=== PATIENT | female | born 1945 | race Caucasian/White ===

== ENCOUNTER 2017-05-07 09:53 | Day surgery (SDC) | payer BC, OTHER ==
[2017-04-29 08:26] VITALS: BMI 35.0
[~2017-05-07] VITALS: Ht 157.5 cm; Wt 87.7 kg
[~2017-05-07 09:53] MED LIST: ATROPINE SULFATE 0.1 MG/ML 5ML SYR IV PRN; CHOL100010 PO; DILT120C43 PO; EpHEDrine SULFATE INJ 50 MG/ML AMP IV PRN; FENTANYL CITRATE INJ 50 MCG/1 ML 2 ML VIAL IV PRN; FURO-85 PO; IBUP-1459 PO; LACTATED RINGER'S 1000ML 1,000 ML IV SCH; PREG1CAP70 PO
[2017-05-07] MEDS ORDERED: ONDANSETRON INJ 2 MG/ML 2 ML VIAL ONE (10:23)
[2017-05-07] MEDS ORDERED: MIDAZOLAM HCL 1 MG/ML 2ML VIAL ONE (10:23)
[2017-05-07] MEDS ORDERED: DEXAMETHASONE SOD INJ 4 MG/ML VIAL ONE (10:23)
[2017-05-07] MEDS ORDERED: GLYCOPYRROLATE INJ 0.2 MG/ML VIAL ONE (10:23)
[2017-05-07] MEDS ORDERED: NEOSTIGMINE METHYLSULFATE 5 MG/5 ML SYR ONE (10:23)
[2017-05-07] MEDS ORDERED: LIDOCAINE HCL 2% 2 ML VIAL (20MG/ML) ONE (10:23)
[2017-05-07] MEDS ORDERED: FENTANYL CITRATE INJ 50 MCG/1 ML 2 ML VIAL ONE (10:23)
[2017-05-07] MEDS ORDERED: PROPOFOL IV EMULSION 10 MG/ML 20 ML VIAL IV ONE (10:23)
[2017-05-07 10:28] VITALS: BP 172/79; PULSE 84; TEMP 36.7; O2SAT 93; Ht 157.5 cm; Wt 87.7 kg
[2017-05-07] MEDS ORDERED: INDOMETHACIN 50 MG SUPP PR ONE (10:53)
[2017-05-07] MEDS ORDERED: SCOPOLAMINE 1.5 MG TDSY TD ONE ×2 (11:01→11:15)
--- NOTE | 2017-05-07 11:06 | History and Physical ---
History & Physical Date May 07, 2017. (Virginia Conroy,Amy.R.N.P.) Chief Complaint Need for bile duct stent removal. (Virginia Conroy C.R.N.P.) History of Present Illness The patient is a 71 year old female who is her for scheduled ERCP for bile duct stent removal after ERCP with sphincterotomy and stone removal in February [address] Kline. She denies any current abdominal pain, CP, SOB, fevers, chills, jaundice, dark urine or recent NSAID use. (Virginia ConroyC.R.N.P.) Past Medical/Surgical History Medical Problems: (1) Jaundice (Virginia Conroy C.R.N.P.) Allergies Coded Allergies: Acetaminophen (Verified Allergy, Severe, SEVERELY SICK, VOMITING, 05/07/17) PT STATES SHE IS UNABLE TO TAKE ANY NARCOTICS. Codeine (Verified Allergy, Severe, N/V, breathing problems, 05/07/17) Oxycodone (Verified Allergy, Severe, SEVERELY SICK, VOMITING, 05/07/17) PT STATES SHE IS UNABLE TO TAKE ANY NARCOTICS. Meperidine (Verified Adverse Reaction, Severe, GI SYMPTOMS, 05/07/17) Home Medications Scheduled Cholecalciferol (Vitamin D), 1,000 UNITS PO QAM Diltiazem Hcl Coated Beads (Cartia Xt), 120 MG PO QAM Pregabalin (Lyrica), 150 MG PO BID Scheduled PRN Furosemide (Lasix), 20 MG PO DAILY PRN for EDEMA Ibuprofen (Motrin), 400 MG PO DAILY PRN for Pain Physical Examination Skin: warm/dry, no rash Eyes: normal inspection, EOMI, sclerae normal ENT: normal ENT inspection, pharynx normal Head: normocephalic, atraumatic Neck: supple, no adenopathy, trachea midline Respiratory/Chest: lungs clear, normal breath sounds, no respiratory distress Cardiovascular: regular rate, rhythm, no edema, no murmur Abdomen / GI: normal bowel sounds, non tender Back: normal inspection Extremities: normal inspection, normal range of motion Neurologic/Psych: no motor/sensory deficits, alert, normal reflexes, oriented x 3 (Virginia Conroy,C.R.N.P.) Diagnosis Choledocholithiasis (Virginia Conroy C.R.N.P.) ASA Classification: ASA Class III (Uriel,Reggie L., M.D.) Plan of Treatment ERCP today for bile duct stent removal and possible stone extraction. (Virginia Conroy,C.R.N.P.) ERCP with stent removal and cholangiogram, possible stone extraction. ATTESTATION: I have performed a history and physical examination of this patient and reviewed the electronic record. Specifically, on physical examination there is no jaundice or abdominal tenderness. I have discussed the case with ERIKA Oh. The above note reflects my findings, conclusions, and recommendations. Reggie Trevino MD (Reggie Trevino M.D.)
[2017-05-07] MEDS ORDERED: SODIUM CHLORIDE 0.9% 500ML 500 ML IV ONE (11:11)
[2017-05-07] MEDS ORDERED: LARYING-O-JET KIT (LTA) ONE (11:54)
[2017-05-07] MEDS ORDERED: EpHEDrine SULFATE 50MG/5ML SYR ONE (11:54)
--- NOTE | 2017-05-07 12:32 | GI REPORT ---
Procedure Date: 05/07/2017 11:05 AM Procedure: ERCP Indications: Stent removal Medicines: General Anesthesia Complications: No immediate complications. Estimated blood loss: None Estimated Blood Loss: Estimated blood loss: none. Procedure: Pre-Anesthesia Assessment: - Prior to the procedure, a History and Physical was performed, and patient medications, allergies and sensitivities were reviewed. The patient's tolerance of previous anesthesia was reviewed. - ASA Grade Assessment: III - A patient with severe systemic disease. After obtaining informed consent, the scope was passed under direct vision. Throughout the procedure, the patient's blood pressure, pulse, and oxygen saturations were monitored continuously. The scope was introduced through the mouth, and advanced to the duodenum and used to inject contrast into the bile duct. The ERCP was accomplished with ease. The patient tolerated the procedure well. Findings: A biliary stent was visible on the licensed occupational therapist film. The esophagus was successfully intubated under direct vision without detailed examination of the pharynx, larynx, and associated structures, and upper GI tract. The upper GI tract was grossly normal. The previously placed plastic stent originating in the biliary tree was emerging from the major papilla. The stent was partially occluded. One stent was removed from the biliary tree using a snare. A [employer] Acrobat 0.035 inch guidewire was passed into the biliary tree through a [employer] Omni FS 35 sphincterotome. The spincterotome was passed over the guidewire and the bile duct was then deeply cannulated. Contrast was injected. Choledocholithiasis was found in a mildly dilated duct. To discover objects, the biliary tree was swept several times with a 12 mm balloon starting at the bifurcation. One stone was removed. No stones remained. The duct was flushed with saline. The total fluoroscopy exposure time was 2 minutes and 26 seconds. Impression: - One partially occluded stent from the biliary tree was seen in the major papilla. - The entire main bile duct was mildly dilated, acquired. - Choledocholithiasis was found. Complete removal was accomplished by balloon extraction. - One stent was removed from the biliary tree. - The biliary tree was swept. Recommendation: - Discharge patient to home (with escort). Reggie Trevino M.D. Reggie Trevino MD 05/07/2017 12:32:39 PM This report has been signed electronically. Note Initiated On: 05/07/2017 11:05 AM I attest to the content of the Intraoperative Record and orders documented therein, exceptions below
--- NOTE | 2017-05-07 12:33 | DIAGNOSTIC IMAGING REPORT ---
ERCP BILIARY DUCTAL CLINICAL HISTORY: ERCP. Possible ductal lesion. COMPARISON STUDY: ERCP dated 03/21/2017 FLUOROSCOPY TIME: 146 seconds.. NUMBER OF FLUOROSCOPIC IMAGES: 2 FINDINGS: 2 images demonstrate retrograde catheterization of the common bile duct with instillation of contrast. Granular filling defects within the distal common bile duct, likely representing air bubbles. There are surgical clips in the region of the gallbladder. IMPRESSION: Nonspecific common bile duct filling defects, likely representing air bubbles. Electronically signed by: Alfredo Ferreira M.D. 05/07/2017 12:32 PM Dictated Date/Time: 05/07/2017 12:30 PM
--- NOTE | 2017-05-07 12:44 | [facility] Operative Report ---
Operative Report Operative Date May 07, 2017. Pre-Operative Diagnosis Choledocholithiasis, stent removal Post-Operative Diagnosis same as preoperatively Procedure(s) Performed Endoscopic Retrograde Cholangiopancreatogram with Stent Removal and stone extraction Surgeon Dr. Reggie Trevino Mechanical Integrity Engineer Surgeon(s) Dr. Teresa Gaytan Estimated Blood Loss 0mL Findings Choledocholithiasis in mildly dilated duct. Specimens Handled and charted by Endoscopy staff Drains None Anesthesia General Complication(s) None Disposition Recovery Room / PACU Indications Stent removal. Description of Procedure See Provation note. I attest to the content of the Intraoperative Record and any orders documented therein. Any exceptions are noted below.
--- NOTE | 2017-05-07 12:48 | Discharge Instructions ---
Endoscopy Patient Instructions Date / Procedure(s) Performed May 07, 2017. ERCP Allergy Information Coded Allergies: Codeine (Verified Allergy, Severe, N/V, breathing problems, 05/07/17) Acetaminophen (Verified Adverse Reaction, Intermediate, SEVERELY SICK, VOMITING, 05/07/17) PT STATES SHE IS UNABLE TO TAKE ANY NARCOTICS. Meperidine (Verified Adverse Reaction, Intermediate, GI SYMPTOMS, 05/07/17) Oxycodone (Verified Adverse Reaction, Intermediate, SEVERELY SICK, VOMITING, 05/07/17) PT STATES SHE IS UNABLE TO TAKE ANY NARCOTICS. Discharge Date / Findings May 07, 2017. Stent removed and stone extracted. Medication Instructions Restart Stopped Medication(s): Restart all medications today Provider Instructions Activity Restrictions - No exercising or heavy lifting for 24 hours. - Do not drink alcohol the day of the procedure. - Do not drive a car or operate machinery until the day after the procedure. - Do not make any important decisions or sign important papers in 24 hours after the procedure. Following Day: - Return to full activity which may include returning to work/school. Diet Start your diet with liquids and light foods (jello, soup, juice, toast). Then eat your usual diet if not nauseated. Treatment For Common After Affects For mild abdominal pain, bloating, or excessive gas: - Rest - Eat lightly - Lie on right side Follow-Up Information Follow-up with as scheduled Anesthesia Information What You Should Know You have had a procedure that required some medicine to reduce anxiety and discomfort. This treatment is called moderate sedation. After receiving the treatment, you may be sleepy, but you will be able to breathe on your own. The effects of the treatment may last for several hours. Follow these instructions along with Activity/Diet recommendations noted above: * Do NOT do anything where dizziness or clumsiness would be dangerous. * Rest quietly at home today, then you can be up and about tomorrow. * Have a responsible person stay with you the rest of today. * You may have had an I.V. today. If so, you may take the dressing off later today. Recommendations Call your doctor if: * Trouble breathing * Continuous vomiting for more than 24 hours * Temperature above 101 degrees * Severe abdominal pain or bloating * Pain not relieved by pain medicine ordered * There is increased drainage or redness from any incision * A large amount of rectal bleeding greater than 2-3 tablespoons. (If you had a polyp/s removed or have hemorrhoids, a small amount of blood - from the rectum is to be expected.) * You have any unanswered questions or concerns. IN THE EVENT OF A SERIOUS EMERGENCY, GO TO THE NEAREST EMERGENCY ROOM Your discharge instructions were prepared by provider Reggie Trevino. Patient Instructions Signature Page Mansi Olivera Patient (or Guardian) Signature/Date: I have read and understand the instructions given to me by my caregivers. Caregiver/RN/Doctor Signature/Date: The above-named patient and/or guardian has received patient instructions on this date. + Original Patient Signature Page (only) stays with chart. Please make copy for patient.
[2017-05-07 13:15] VITALS: BP 136/65; PULSE 69; TEMP 36.6; O2SAT 93
--- NOTE | 2017-05-07 13:59 | Anesthesiology Progress Note ---
Anesthesia Post Op Note Date & Time May 07, 2017 at 13:58 Vital Signs Pain Intensity: 0 Vital Signs Past 12 Hours Date Time Temp Pulse Resp B/P (MAP) Pulse Ox O2 Delivery O2 Flow Rate FiO2 05/07/17 13:15 36.6 69 20 136/65 93 Room Air 05/07/17 13:05 36.5 72 17 128/67 94 Room Air 05/07/17 12:55 76 21 131/72 93 Room Air 05/07/17 12:45 77 17 132/84 97 Oxymask 5 05/07/17 12:35 83 16 131/74 100 Oxymask 10 05/07/17 12:27 36.1 86 12 143/77 99 Oxymask 10 05/07/17 10:28 36.7 84 20 172/79 (110) 93 Room Air Notes Mental Status: alert / awake / arousable, participated in evaluation Pt Amnestic to Procedure: Yes Nausea / Vomiting: adequately controlled Pain: adequately controlled Airway Patency, RR, SpO2: stable & adequate BP & HR: stable & adequate Hydration State: stable & adequate Anesthetic Complications: no major complications apparent
[2017-05-07] MEDS ORDERED: CHECK SCOPOLAMINE PATCH PLACEMENT SCH (16:00)
== END 2017-05-07 13:55 | disposition home or self-care (01) ==
LOC: C.ACU 09:53
PROVIDERS: ATTEND Internal Medicine Gastroenterology
DX: K80.50 Calculus of bile duct without cholangitis or cholecystitis without obstruction (principal); K83.8 Other specified diseases of biliary tract; I10 Essential (primary) hypertension; M19.90 Unspecified osteoarthritis, unspecified site; E66.9 Obesity, unspecified; Z68.35 Body mass index [BMI] 35.0-35.9, adult; Z79.82 Long term (current) use of aspirin; Z79.899 Other long term (current) drug therapy